=== PATIENT | male | born 1955 | race Native Hawaiian/Other Pacific Islander ===

== ENCOUNTER 2017-10-15 02:20 | Outpatient (CLI) | payer OTHER ==
[2017-10-16] MEDS ORDERED: ACET-655 PO ×2 (11:06)
== END 2017-10-15 02:34 | disposition short-term general hospital (02) ==
LOC: AMB 02:20
DX: R51 Headache (principal)
CPT/HCPCS: A0425; A0427

== ENCOUNTER 2017-10-15 02:40 | Observation (INO) | payer OTHER ==
[2017-10-15] VITALS (8 sets, daily range): BP systolic 110–157; BP diastolic 64–95; TEMP 97.5–98.9; Ht 172.7 cm; Wt 88.6 kg
[~2017-10-15] VITALS: Ht 172.7 cm; Wt 88.6 kg
[2017-10-15 04:34] LABS: PLATELET COUNT 261 K/uL (142-355)
[2017-10-15 04:51] LABS: POTASSIUM 4.2 mmol/L (3.6-5.2); SODIUM 135 mmol/L (136-145)
--- NOTE | 2017-10-15 20:00 | NUR ---
PM ASSESSMENT COMPLETED. PT DENIES HEADACHE. REQUESTS HOME MEDICATION LYRICA BE GIVEN AT BEDTIME.
--- NOTE | 2017-10-15 21:50 | NUR ---
ORDER FOR LYRICA 150MG BID RECEIVED FROM DR. EASLEY.
[2017-10-16] VITALS: BP 108/69; TEMP 98.3
--- NOTE | 2017-10-16 | NUR ---
PT RESTING. NOT DISTURBED.
[2017-10-16 04:00] VITALS: BP 109/64; TEMP 97.9
[2017-10-16 05:18] LABS: PLATELET COUNT 261 K/uL (142-355)
[2017-10-16 05:35] LABS: SODIUM 139 mmol/L (136-145)
[2017-10-16 08:00] VITALS: BP 115/66; TEMP 98
[2017-10-16] MEDS ORDERED: ACET-655 PO ×2 (11:06)
--- NOTE | 2017-10-16 11:08 | NUR ---
IV D/C'D WITH TIP INTACT PRESSURE DRESSING APPLIED.
--- NOTE | 2017-10-16 11:13 | NUR ---
D/C INSTRUCTIONS GIVEN. PT VERBALIZED UNDERSTANDING.
--- NOTE | 2017-10-16 11:23 | NUR ---
PT AMB OUT IN STABLE COND.
== END 2017-10-16 11:23 | disposition home or self-care (01) ==
LOC: ED 02:40 → MED/SURG 09:43 → ED 10:14 → MED/SURG 10-16 11:23
PROVIDERS: Specialist; ADMIT Family Medicine
DX: G44.009 Cluster headache syndrome, unspecified, not intractable (principal); G40.909 Epilepsy, unspecified, not intractable, without status epilepticus
CPT/HCPCS: 36415; 80053; 81000; 85027; 85651; 96365; 96375; 99220; 99284; G0378; J1200; J1885; J2175; J2550

== ENCOUNTER 2021-12-07 08:35 | Outpatient (CLI) | payer OTHER ==
[~2021-12-07 08:35] MED LIST: ACET-655 PO
[2021-12-07 10:38] LABS: PLATELET COUNT 269 K/uL (142-355)
[2021-12-07 10:49] LABS: POTASSIUM 4.1 mmol/L (3.6-5.2)
== END 2021-12-07 18:54 | disposition home or self-care (01) ==
LOC: RESP 08:35 → LABW 08:35 → RESP 09:00
PROVIDERS: ATTEND Specialist
DX: G40.309 Generalized idiopathic epilepsy and epileptic syndromes, not intractable, without status epilepticus (principal)
CPT/HCPCS: 36415; 80053; 85027